=== PATIENT | female | born 1970 | race Caucasian/White ===

== ENCOUNTER → 2016-12-26 | Outpatient (CLI) | payer BC ==
[~2016-12-26] MED LIST: CHLO25TA2 PO; GADOBUTROL 10mMol/10ml INJECTION IV ONE; LABE100T PO; LEVO1TAB PO; RANI150T7 PO; SALINE FLUSH 10ml SYRINGE IVF ONE; TRAZ-170 PO; ZOLP10TA6 PO
--- NOTE | 2016-12-26 17:02 | DI ---
Indication: ITS.REASON: R51 HARVEY PROCEDURE: MRI BRAIN W/WO CONTRAST: Encounter: Initial Comparisons: Head CT dated December 15, 2016 Technique: Multiplanar, multisequence, MR imaging of the head with and without contrast was acquired. Contrast: 5.5 mL of Gadavist FINDINGS: The ventricles are of normal size, shape, and contour for the patient's age. There is a nonspecific area of T2-weighted and T2 FLAIR weighted signal abnormality in the left occipital lobe on axial image #13 measuring 8 mm in size. This lesion does not enhance.The brain stem, cerebellum, and cerebral hemispheres otherwise have a normal morphologic appearance as well as MR signal intensity on all pulse sequences. Following intravenous administration of contrast, no areas of abnormal enhancement are evident. There are no areas of restricted diffusion to suggest an acute infarct. There is no evidence of an intracranial mass lesion, intracranial hemorrhage, or hydrocephalus. The visualized portions of the orbits, calvarium, and skull base demonstrate no significant abnormality. Mucosal thickening in the sphenoid sinuses. IMPRESSION: 1. Nonspecific white matter lesion in the left occipital lobe could be due to chronic microvascular ischemia, prior trauma, prior infection or inflammation. This would not be anticipated to account for the patient's symptoms. 2. Sphenoid sinusitis which could be a source for headaches. .
== END ==
LOC: IMA 12-25 16:58
PROVIDERS: ATTEND Family Medicine
DX: R51 Headache (principal); J32.3 Chronic sphenoidal sinusitis; R90.82 White matter disease, unspecified
CPT/HCPCS: 70553; A9585

== ENCOUNTER → 2017-01-12 | Outpatient (CLI) | payer BC ==
[~2017-01-12] MED LIST changes: -GADOBUTROL 10mMol/10ml INJECTION IV ONE; -SALINE FLUSH 10ml SYRINGE IVF ONE
--- NOTE | 2017-01-12 08:18 | DI ---
Indication: ITS.REASON: R07.2 PRECORDIAL PAIN; I34.1 PROCEDURE: US RENAL DOPPLER: Encounter: Initial Comparison: None Findings: Scans of the kidneys demonstrate normal morphology. The right kidney measures 10.8 cm in length. The left kidney measures 10.1 cm in length. There is no collecting system dilatation, contour deforming mass, nephrolithiasis, or abnormal perinephric fluid collection. Color Doppler imaging demonstrates normal vascularization. Resistive indices from the intrarenal arteries in the upper, middle, and lower portions of the right kidney are normal. Resistive indices from the intrarenal arteries in the upper, middle, and lower portions of the left kidney are normal. Arterial waveforms are normal. Two renal arteries bilaterally. Impression: No evidence of hemodynamically significant renal arterial stenosis. .
== END ==
LOC: IMA 06:53
PROVIDERS: ATTEND Internal Medicine Cardiovascular Disease
DX: R07.2 Precordial pain (principal); I34.1 Nonrheumatic mitral (valve) prolapse

== ENCOUNTER → 2017-01-21 | Outpatient (CLI) | payer BC | LOC: WC.BC 08:13 | DX: Z12.31 Encounter for screening mammogram for malignant neoplasm of breast (principal); Z98.82 Breast implant status | CPT/HCPCS: 77063; G0202 ==